=== PATIENT | male | born 1975 | race Caucasian/White ===

== ENCOUNTER 2020-10-12 17:18 | Emergency (ER) | payer MEDICAID ==
[~2020-10-12] VITALS: Ht 172.7 cm; Wt 73.0 kg
[2020-10-12 20:29] LABS: CHLORIDE 105 mEq/L (98-107)
[2020-10-12] MEDS ORDERED: ONDANSETRON HCL 4MG/2ML INJ IM ONE (23:30)
[2020-10-13 04:00] VITALS: BP 118/78
[2020-10-13] MEDS ORDERED: MECL-159 MT (08:31)
== END 2020-10-13 04:45 | disposition home or self-care (01) ==
LOC: ER 17:18
DX: T40.7X1A Poisoning by cannabis (derivatives), accidental (unintentional), initial encounter (principal); R42 Dizziness and giddiness; Y92.9 Unspecified place or not applicable
CPT/HCPCS: 36415; 80048; 99283

== ENCOUNTER 2020-10-13 05:49 | Emergency (ER) | payer MEDICAID ==
[~2020-10-13] VITALS: Ht 167.6 cm; Wt 68.0 kg
[2020-10-13] MEDS ORDERED: MECLIZINE 25MG TABLET PO ONE (06:30)
[2020-10-13] MEDS ORDERED: SODIUM CHLORIDE 0.9% 1,000 ML IV ONE (06:30)
[2020-10-13 07:12] LABS: CLARITY URINE CLEAR (CLEAR); COLOR URINE YELLOW (YELLOW); KETONES URINE NEGATIVE (NEGATIVE); LEUKOCYTE ESTERASE URINE NEGATIVE (NEGATIVE); NITRITE URINE NEGATIVE (NEGATIVE); OCCULT BLOOD URINE NEGATIVE (NEGATIVE); PROTEIN URINE NEGATIVE (NEGATIVE); UROBILINOGEN URINE 0.2 E.U./dL (0.2-1.0)
[2020-10-13 07:26] LABS: *AMPHETAMINES SCREEN URINE NEGATIVE (NEGATIVE); *BARBITURATES SCREEN URINE NEGATIVE (NEGATIVE); *BENZODIAZEPINES SCREEN URINE NEGATIVE (NEGATIVE); *COCAINE SCREEN URINE NEGATIVE (NEGATIVE); METHADONE URINE SCREEN NEGATIVE (NEGATIVE); OPIATES URINE SCREEN NEGATIVE (NEGATIVE)
[2020-10-13 07:27] LABS: CANNABINOID URINE SCREEN PRESUMTIVE POSITIVE (NEGATIVE); PHENCYCLIDINE URINE SCREEN NEGATIVE (NEGATIVE)
[2020-10-13 07:51] LABS: BASOPHILS % 0.3 % (0.0-2.0); EOSINOPHILS % 0.2 % (0.0-5.0); HEMATOCRIT. 40.8 % (42.0-52.0); HEMOGLOBIN. 14.1 g/dL (14.0-18.0); LYMPHOCYTES % 11.4 % (20.0-50.0); MEAN CORPUSCULAR HEMOGLOBIN 29.9 pg (28.0-32.0); MEAN CORPUSCULAR VOLUME 86.1 fL (80.0-94.0); MEAN PLATELET VOLUME 8.1 fl (7.4-10.4); NEUTROPHILS % 84.1 % (40.0-76.0); PLATELET 279 x1000/uL (130-400); RED BLOOD CELL COUNT 4.74 mill/uL (4.7-6.1); RED CELL DISTRIBUTION WIDTH 13.5 % (11.6-14.6)
[2020-10-13 07:57] LABS: CHLORIDE 106 mEq/L (98-107)
[2020-10-13] MEDS ORDERED: MECL-159 MT (08:31)
[2020-10-13 09:43] VITALS: BP 146/86
== END 2020-10-13 09:20 | disposition home or self-care (01) ==
LOC: ER 05:49
DX: R42 Dizziness and giddiness (principal)
CPT/HCPCS: 36415; 80053; 80305; 81003; 85025; 93005; 96360; 96361; 99284; J7030; J8597; Z7610